=== PATIENT | male | born 1990 | race Caucasian/White ===

== ENCOUNTER 2023-08-29 06:17 | Day surgery (SDC) | payer OTHER, SELFPAY ==
[2023-08-29] VITALS (10 sets, daily range): BP systolic 0–121; BP diastolic 52–77; BMI 32.4
[2023-08-29] MEDS: NORMOSOL-R 1000 IV (07:16)
[2023-08-29] MEDS: SUBLIMAZE 50 MCG IV (10:09)
== END 2023-08-29 11:49 | disposition home or self-care (01) ==
LOC: SDS 06:17
PROVIDERS: ATTENDING PHYSICIAN Otolaryngology
DX: R22.1 Localized swelling, mass and lump, neck (principal)
CPT/HCPCS: 42440; 88304